=== PATIENT | male | born 1950 | race Caucasian/White ===

== ENCOUNTER 2017-11-21 03:59 | Emergency (ER) | payer MEDICARE, MEDICAID ==
[~2017-11-21] VITALS: Ht 172.7 cm; Wt 77.1 kg
[~2017-11-21 03:59] MED LIST: AMLO5TAB2 PO; ASPI81TA44 PO; BISA5TAB10 PO; ERGO400T7 PO; FENO134C PO; INSU100V11 SQ; LIRA0.6P2 SUBCUT; METF500T6 PO; METO50TA16 PO; OLME1TAB16 PO
[2017-11-21 04:03] VITALS: BP 138/79
== END 2017-11-21 05:42 | disposition home or self-care (01) ==
LOC: ER 04:03
DX: S93.692A Other sprain of left foot, initial encounter (principal); I10 Essential (primary) hypertension; E11.9 Type 2 diabetes mellitus without complications; E78.00 Pure hypercholesterolemia, unspecified; F17.200 Nicotine dependence, unspecified, uncomplicated; Z79.84 Long term (current) use of oral hypoglycemic drugs; Z85.528 Personal history of other malignant neoplasm of kidney; Z79.4 Long term (current) use of insulin; Z79.82 Long term (current) use of aspirin; X50.1XXA Overexertion from prolonged static or awkward postures, initial encounter; Y93.89 Activity, other specified; Y92.89 Other specified places as the place of occurrence of the external cause; Y99.8 Other external cause status
CPT/HCPCS: 73630; 99284; A4606; Z7610

== ENCOUNTER 2019-06-01 14:01 | Inpatient (IN) | payer MEDICARE, MEDICAID ==
[~2019-06-01] VITALS: Ht 162.6 cm; Wt 84.4 kg
[~2019-06-01 14:01] MED LIST changes: -AMLO5TAB2 PO; +AMLO5TAB9 PO; +METF-440 PO; -METF500T6 PO
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
[2019-06-01 14:52] LABS: BASOPHILS % (AUTO) 0.9 % (0.0-2.0); EOSINOPHILS % (AUTO) 2.1 % (0.0-6.0); HEMATOCRIT 35 % (39-51); HEMOGLOBIN 11.6 g/dL (13.5-17.5); LYMPHOCYTES # (AUTO) 0.6 /CMM (0.8-4.8); LYMPHOCYTES % (AUTO) 14.7 % (20.0-44.0); MEAN CORPUSCULAR HGB CONC 33 g/dl (31.0-36.0); MEAN CORPUSCULAR VOLUME 90 fL (80-96); MONOCYTES # (AUTO) 0.4 /CMM (0.1-1.30); MONOCYTES % (AUTO) 8.9 % (2.0-12.0); NEUTROPHILS # (AUTO) 3.1 /CMM (1.8-8.9); NEUTROPHILS % (AUTO) 73.4 % (43.0-81.0); PLATELET COUNT (AUTO) 166 /CMM (150-450); RED BLOOD CELL COUNT(AUTO) 3.94 MIL/uL (4.5-6.0); WHITE BLOOD COUNT (AUTO) 4.3 K/uL (4.3-11.0)
[2019-06-01 15:03] LABS: CALCIUM, SERUM 9.3 mg/dL (8.5-10.1); CARBON DIOXIDE 26 mmol/L (21-32); CHLORIDE 106 mmol/L (98-107); CREATININE 1.7 mg/dL (0.6-1.3); GLUCOSE 296 mg/dL (74-106); POTASSIUM 4.8 mmol/L (3.5-5.1); SODIUM SERUM 140 mmol/L (136-145); UREA NITROGEN, BLOOD 30 mg/dL (7-18)
[2019-06-01 15:17] LABS: ALANINE AMINOTRANSFERASE 41 U/L (12-78); ALBUMIN 3.1 g/dL (3.4-5.0); ALKALINE PHOSPHATASE 89 U/L (46-116); ASPARTATE AMINOTRANSFERASE 32 U/L (15-37); B-TYPE NATRIURETIC PEPTIDE 462 PG/ML (0-125); BILIRUBIN,DIRECT 0.2 mg/dL (0.0-0.2); BILIRUBIN,TOTAL 0.6 mg/dL (0.2-1.0); TOTAL PROTEIN, SERUM 6.5 g/dL (6.4-8.2)
[2019-06-01] MEDS ORDERED: LOSA50TA39 PO (15:26)
[2019-06-01] MEDS ORDERED: GLIP10TA21 PO (15:26)
[2019-06-01] MEDS ORDERED: METO25TA4 PO (15:26)
[2019-06-01] MEDS ORDERED: INSU100V7 SQ (15:26)
[2019-06-01] MEDS ORDERED: LINA145C PO (15:26)
[2019-06-01] MEDS ORDERED: ATOR40TA PO (15:26)
--- NOTE | 2019-06-01 15:29 | NUR ---
Social service consult requested by Dr. Chen for homelessness. Per chart review and MD notes, pt. is a 68-year-old Male, with a history of diabetes, hypertension, CAD s/p stent, presenting with swelling to the feet since 3 hours prior to arrival. SOFTWARE DEVELOPMENT COORDINATOR met with the pt bedside. Pt. is alert and oriented x 4. Pt. has a sad affect. Pt is pleasant during the assessment. Pt. has some belongings bedside. Pt. stated he was residing for 30 years in an apt located at [address] [place] [address] in [place] and was evicted by his landlord due to cheap rent. Pt. has been homeless since and has been living on the streets. Pt. receives SSI per month. Pt. has no emergency contact and the contact on the face sheet is no longer valid per pt. Pt. states he is feeling very depressed since he lost everything. Pt denies suicidal and homicidal ideations and visual/auditory hallucinations at this time. Pt denies access to weapons. Pt denies alcohol and drug use. Pt. would benefit from placement. [facility] requested Cholo to ordered pt. a lunch tray. SOFTWARE DEVELOPMENT COORDINATOR consulted with Dr. Chen and GRACE Lin regarding inpatient admission. No other social service needs are requested at this time. SOFTWARE DEVELOPMENT COORDINATOR is available, if needed.
--- NOTE | 2019-06-01 15:49 | NUR ---
CALLED NURSING SUP FOR TELE BED.
--- NOTE | 2019-06-01 16:30 | NUR ---
NURSING SUP GAVE TELE BED 327-1.
--- NOTE | 2019-06-01 16:40 | NUR ---
report given to veronica ríos for paige; pt will be transported to 3rd floor
[2019-06-01] MEDS ORDERED: MAG HYDROX/AL HYDROX/SIMETH 30 ML UDC PO PRN (17:00)
[2019-06-01] MEDS ORDERED: ONDANSETRON HCL/PF 4 MG/2 ML VIAL IVP PRN (17:00)
[2019-06-01] MEDS ORDERED: ZOLPIDEM TARTRATE 5 MG TABLET PO PRN (17:00)
[2019-06-01] MEDS ORDERED: Z GUARD REMEDY 2 OZ OINT TP PRN (17:00)
[2019-06-01] MEDS ORDERED: ACETAMINOPHEN 325 MG TABLET PO PRN (17:00)
[2019-06-01] MEDS ORDERED: MAGNESIUM HYDROXIDE 30 ML UDC PO PRN (17:00)
[2019-06-01] MEDS ORDERED: HYDROCODONE/APAP 5/325MG 1 EACH TABLET PO PRN (17:00)
--- NOTE | 2019-06-01 17:02 | NUR ---
pt transported to 3rd floor
--- NOTE | 2019-06-01 17:15 | NUR ---
MS/CHURN OPERATOR MARGARINE NOTE Patient admitted from ER, vital signs BP 116/57, SD 57, RR 18, T 97.2, O2 98% on RA pain level 0/10. Breathing is even and unlabored, patient is cooperative and pleasant. IV line in LAC is clean and intact. Skin assessed, photos taken and placed in chart. Patient is ambulatory. Bed is in lowest position, side rails x2 in upright position, call light is within reach and patient is aware of how to call for assistance when needed. Will continue with plan of care and admission process.
--- NOTE | 2019-06-01 18:30 | NUR ---
MS/RN CLOSING NOTE Patient is resting in bed, A/O x4, showing no signs of acute distress or SOB, saturating 98% on RA. No complaints of pain at this time. Iv line is clean and intact. Bed is in lowest position, side rails x2 in upright position, call light is within reach and patient is aware of how to call for assistance when needed. Will endorse to program arranger.
--- NOTE | 2019-06-01 19:35 | NUR ---
MS/RN NOTES RECEIVED PT. LYING IN BED. PT. IS AWAKE, ALERT AND ORIENTED X3. BREATHING EVEN AND UNLABORED ON ROOM AIR. NO SOB, RESPIRATORY DISTRESS OR COMPLAINTS OF PAIN NOTED AT THIS TIME. PT. IV ACCESS PRESENT, CLEAN, DRY AND INTACT. PT. WITH BILATERAL LOWER EXTREMITY NON-PITTING EDEMA. ELEVATED PT. BILATERAL LEGS AND FEET ON PILLOWS. BED LOCKED AND IN LOWEST POSITION, SIDE RAILS UP X2, CALL LIGHT WITHIN REACH, WILL CONTINUE TO MONITOR.
[2019-06-01 20:00] VITALS: BP 130/70
--- NOTE | 2019-06-01 20:31 | NUR ---
belongings list done and signed
--- NOTE | 2019-06-01 23:50 | NUR ---
MS/RN NOTES NOTIFIED EPIC RESIDENTIAL SPECIALIST NADEEN GLORIA PT. IS DIABETIC AND HAS NO ACCUCHECKS SCHEDULED. PER NADEEN GLORIA NEW ORDER: ACCUCHECKS ACHS WITH MILD SLIDING SCALE. WILL CARRY OUT ORDERS. WILL CONTINUE TO MONITOR.
[2019-06-02] MEDS ORDERED: DEXTROSE 50%-WATER 50 ML DISP.SYRIN IV PRN
[2019-06-02] MEDS: BLOOD SUGAR DIAGNOSTIC 1 EACH STRIP IN SCH ×4 (06:34→23:25)
--- NOTE | 2019-06-02 06:54 | NUR ---
MS/RN NOTES PT. IS LYING IN BED RESTING. BREATHING EVEN AND UNLABORED ON ROOM AIR. NO SOB, RESPIRATORY DISTRESS OR COMPLAINTS OF PAIN NOTED AT THIS TIME AND THROUGHOUT SHIFT. PT. WITH LEFT AC 18 GAUGE IV SALINE LOCK PRESENT, CLEAN, DRY AND INTACT. ALL PT. NEEDS MET. BED LOCKED AND IN LOWEST POSITION, SIDE RAILS UP X2, CALL LIGHT WITHIN REACH, WILL ENDORSE TO DAYSHIFT NURSE FOR CONTINUITY OF CARE.
--- NOTE | 2019-06-02 08:03 | NUR ---
MS/RN OPENING NOTES RECEIVED PATIENT LYING IN BED COMFORTABLY. BREATHING EVEN AND UNLABORED ON ROOM AIR. NO SOB, RESPIRATORY DISTRESS OR COMPLAINTS OF PAIN NOTED AT THIS TIME. PATIENT WITH LEFT AC 18 GAUGE IV SALINE LOCK PRESENT, CLEAN, DRY AND INTACT. BED LOCKED AND IN LOWEST POSITION, SIDE RAILS UP X2, CALL LIGHT WITHIN REACH, WILL CONTINUE TO MONITOR.
[2019-06-02 08:37] LABS: BASOPHILS % (AUTO) 0.6 % (0.0-2.0); EOSINOPHILS % (AUTO) 2.3 % (0.0-6.0); HEMATOCRIT 41 % (39-51); HEMOGLOBIN 13.6 g/dL (13.5-17.5); LYMPHOCYTES # (AUTO) 0.9 /CMM (0.8-4.8); LYMPHOCYTES % (AUTO) 18.9 % (20.0-44.0); MEAN CORPUSCULAR HGB CONC 33 g/dl (31.0-36.0); MEAN CORPUSCULAR VOLUME 89 fL (80-96); MONOCYTES # (AUTO) 0.4 /CMM (0.1-1.30); MONOCYTES % (AUTO) 8.4 % (2.0-12.0); NEUTROPHILS # (AUTO) 3.5 /CMM (1.8-8.9); NEUTROPHILS % (AUTO) 69.8 % (43.0-81.0); PLATELET COUNT (AUTO) 211 /CMM (150-450); RED BLOOD CELL COUNT(AUTO) 4.61 MIL/uL (4.5-6.0)
[2019-06-02] MEDS ORDERED: FUROSEMIDE 20 MG/2 ML VIAL IV SCH (09:00)
[2019-06-02] MEDS: ATORVASTATIN 40 MG TABLET PO SCH (09:13)
[2019-06-02] MEDS: METOPROLOL SUCCINATE 25 MG TAB.SR.24H PO SCH (09:14)
[2019-06-02] MEDS: LOSARTAN POTASSIUM 50 MG TABLET PO SCH (09:14)
[2019-06-02] MEDS: AMLODIPINE BESYLATE 5 MG TABLET PO SCH (09:15)
[2019-06-02] MEDS: ASPIRIN EC 81 MG TABLET.DR PO SCH (09:15)
[2019-06-02 09:45] LABS: CREATININE 1.5 mg/dL (0.6-1.3); MAGNESIUM 1.7 mg/dL (1.8-2.4); PHOSPHORUS 4.1 mg/dL (2.5-4.9); POTASSIUM 4.6 mmol/L (3.5-5.1)
[2019-06-02] MEDS: glipiZIDE XL 10 MG TAB.OSM.24 PO SCH (09:51)
[2019-06-02] MEDS: INSULIN GLARGINE, 100 UNIT/ML CARTRIDGE SQ SCH (10:25)
[2019-06-02] MEDS: Magnesium 1GM/D5W 100ML PREMIX 100 ML IV SCH ×2 (12:16→12:30)
[2019-06-02] MEDS: INSULIN REGULAR, HUMAN 100 UNIT/ML 3 ML VIAL SQ PRN ×3 (13:19→23:25)
[2019-06-02 16:00] VITALS: BP 108/37
--- NOTE | 2019-06-02 18:49 | NUR ---
MS/RN CLOSING NOTES PATIENT IS ALERT AND ORIENTED X4. DENIES PAIN AT THIS TIME. NO RESPIRATORY DISTRESS NOTED. SEEN AND EXAMINED BY MD WITH ORDERS AND CARRIED OUT. KEPT PATIENT CLEAN AND DRY THE WHOLE TIME. PATIENT BED IS IN LOWEST POSITION, SIDE RAILS UP X2. CALL LIGHT WITH IN REACH. ALL DUE MEDS ARE GIVEN. WILL ENDORSED TO AUTOMATED PROCESS OPERATOR FOR CONTINUITY OF CARE.
--- NOTE | 2019-06-02 19:15 | NUR ---
MS/RN OPENING NOTES BEDSIDE REPORT RECIEVED FROM LD PARRISH. PATIENT IS ALERT AND ORIENTED X4. DENIES PAIN AT THIS TIME. NO RESPIRATORY DISTRESS NOTED. PATIENT BED IS IN LOWEST POSITION, SIDE RAILS UP X2. CALL LIGHT WITH IN REACH. BED DOWN LOCKED SRX2 WILL CONT TO MONITOR.
[2019-06-02 20:00] VITALS: BP 127/61
--- NOTE | 2019-06-03 06:00 | NUR ---
MS/RN CLOSING NOTES PT SEEN PATIENT IS ALERT AND ORIENTED X4. AM BLOOD SUGAR WAS 118. NO INSULIN GIVEN. DENIES PAIN AT THIS TIME. NO RESPIRATORY DISTRESS NOTED. PATIENT BED IS IN LOWEST POSITION, SIDE RAILS UP X2. CALL LIGHT WITH IN REACH. ALL DUE MEDS ARE GIVEN. WILL CONT TO MONITOR AND ENDORSE CARE TO DAY SHIFT WHEN THEY COME LATER.
[2019-06-03] MEDS: BLOOD SUGAR DIAGNOSTIC 1 EACH STRIP IN SCH ×4 (06:57→22:32)
--- NOTE | 2019-06-03 07:53 | NUR ---
MS/RN OPENING NOTES RECEIVED PATIENT LYING IN BED COMFORTABLY. PATIENT IS ALERT AND ORIENTED X4. COMPLAINED OF PAIN AT THE RANGE OF 5 IN THE LEG. NO RESPIRATORY DISTRESS NOTED. PATIENT BED IS IN LOWEST POSITION, SIDE RAILS UP X2. CALL LIGHT WITH IN REACH. WILL CONTINUE TO MONITOR..
[2019-06-03 08:00] VITALS: BP 99/64
[2019-06-03 08:08] LABS: BASOPHILS % (AUTO) 0.5 % (0.0-2.0); EOSINOPHILS % (AUTO) 1.4 % (0.0-6.0); HEMATOCRIT 39 % (39-51); HEMOGLOBIN 12.9 g/dL (13.5-17.5); LYMPHOCYTES # (AUTO) 0.8 /CMM (0.8-4.8); LYMPHOCYTES % (AUTO) 17.7 % (20.0-44.0); MEAN CORPUSCULAR HGB CONC 33 g/dl (31.0-36.0); MEAN CORPUSCULAR VOLUME 88 fL (80-96); MONOCYTES # (AUTO) 0.4 /CMM (0.1-1.30); NEUTROPHILS # (AUTO) 3.1 /CMM (1.8-8.9); NEUTROPHILS % (AUTO) 71.4 % (43.0-81.0); PLATELET COUNT (AUTO) 186 /CMM (150-450); RED BLOOD CELL COUNT(AUTO) 4.46 MIL/uL (4.5-6.0); WHITE BLOOD COUNT (AUTO) 4.3 K/uL (4.3-11.0)
[2019-06-03 08:21] LABS: CALCIUM, SERUM 9.5 mg/dL (8.5-10.1); CREATININE 1.5 mg/dL (0.6-1.3); MAGNESIUM 1.7 mg/dL (1.8-2.4)
[2019-06-03] MEDS: HYDROCHLOROTHIAZIDE 25 MG TABLET PO SCH (09:00)
[2019-06-03] MEDS: AMLODIPINE BESYLATE 5 MG TABLET PO SCH (09:00)
[2019-06-03] MEDS: glipiZIDE XL 10 MG TAB.OSM.24 PO SCH (09:03)
[2019-06-03] MEDS: INSULIN GLARGINE, 100 UNIT/ML CARTRIDGE SQ SCH (09:05)
[2019-06-03] MEDS: LOSARTAN POTASSIUM 50 MG TABLET PO SCH (09:06)
[2019-06-03] MEDS: ASPIRIN EC 81 MG TABLET.DR PO SCH (09:06)
[2019-06-03] MEDS: METOPROLOL SUCCINATE 25 MG TAB.SR.24H PO SCH (09:07)
[2019-06-03] MEDS: ATORVASTATIN 40 MG TABLET PO SCH (09:14)
--- NOTE | 2019-06-03 09:15 | NUR ---
MS/RN NOTES AMLODIPINE 5MG AND COZAAR 5OMG PO AM DOSE ON HOLD FOR BLOOD PRESSURE 99/64 PULSE 63.
[2019-06-03] MEDS: Magnesium 1GM/D5W 100ML PREMIX 100 ML IV SCH ×2 (11:28→12:31)
[2019-06-03] MEDS: INSULIN REGULAR, HUMAN 100 UNIT/ML 3 ML VIAL SQ PRN ×3 (12:35→22:37)
[2019-06-03 16:00] VITALS: BP 111/65
--- NOTE | 2019-06-03 17:39 | NUR ---
MS/RN NOTES BS 141MG/DL 2 UNITS REGULAR INSULIN GIVEN
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
--- NOTE | 2019-06-03 19:00 | NUR ---
FRANCOIS monroy opening notes Received Pt from morning nurse. Pt is alert and orientedX4. Pt is sitting in bed comfortably. Respiration is normal. no SOB. No S/S of distress noted. IV sites LAC# 18 is clean, intact, patent and SL. Safety precautions is maintained. Bed at low position, brakes locked, side rails upX3 and call light is within reach. Will endorse to morning nurse for JOHN. Addendum: 06/04/19 at 0814 by RAYMOND ALBA RN Will continue to monitor
[2019-06-03 20:00] VITALS: BP 124/75
--- NOTE | 2019-06-04 07:00 | NUR ---
RN medsurg closing notes Pt is resting in bed comfortably. Pt is alert and orientedX4. Respiration is normal. no SOB. No S/S of distress noted. IV sites at LAC# 18 is clean, intact, patent and SL. VS is stable. Routine meds were given as ordered. Kept Pt clean, dry and comfortable. All needs met and attended. Safety precautions is maintained. Bed at low position, brakes locked, side rails upX3 and call light is within reach. Will endorse to morning nurse for JOHN.
[2019-06-04] MEDS: BLOOD SUGAR DIAGNOSTIC 1 EACH STRIP IN SCH ×3 (07:03→17:16)
[2019-06-04] MEDS: INSULIN REGULAR, HUMAN 100 UNIT/ML 3 ML VIAL SQ PRN ×3 (07:05→17:17)
--- NOTE | 2019-06-04 07:35 | NUR ---
MS/RN NOTE THE PATIENT IS RECEIVED IN BED. PATIENT IS ALERT AND ORIENTED X4. IN ROOM AIR AND DENIES SOB. RESPIRATION REGULAR AND UNLABORED. DENIES PAIN. THE PATIENT IN NO APPARENT DISTRESS. ALC G 18 PATENT AND SALINE LOCKED. BED LOW AND LOCKED. SIDE RAILS UP X3. CALL LIGHT WITHIN REACH. WILL CONTINUE TO MONITOR.
[2019-06-04 08:00] VITALS: BP 115/65
[2019-06-04 08:26] LABS: CALCIUM, SERUM 9.2 mg/dL (8.5-10.1); CREATININE 1.5 mg/dL (0.6-1.3); MAGNESIUM 1.6 mg/dL (1.8-2.4); POTASSIUM 4.1 mmol/L (3.5-5.1)
[2019-06-04] MEDS: ASPIRIN EC 81 MG TABLET.DR PO SCH (09:47)
[2019-06-04] MEDS: ATORVASTATIN 40 MG TABLET PO SCH (09:47)
[2019-06-04] MEDS: Linaclotide (Linzess) 145 MCG PO SCH ×2 (09:47→09:56)
[2019-06-04] MEDS: AMLODIPINE BESYLATE 5 MG TABLET PO SCH (09:48)
[2019-06-04] MEDS: METOPROLOL SUCCINATE 25 MG TAB.SR.24H PO SCH (09:48)
[2019-06-04] MEDS: HYDROCHLOROTHIAZIDE 25 MG TABLET PO SCH (09:49)
[2019-06-04] MEDS: LOSARTAN POTASSIUM 50 MG TABLET PO SCH (09:49)
[2019-06-04 09:50] LABS: BASOPHILS % (AUTO) 0.3 % (0.0-2.0); EOSINOPHILS % (AUTO) 1.6 % (0.0-6.0); HEMATOCRIT 39 % (39-51); HEMOGLOBIN 12.7 g/dL (13.5-17.5); LYMPHOCYTES # (AUTO) 0.9 /CMM (0.8-4.8); LYMPHOCYTES % (AUTO) 16.3 % (20.0-44.0); MEAN CORPUSCULAR HGB CONC 33 g/dl (31.0-36.0); MEAN CORPUSCULAR VOLUME 88 fL (80-96); MONOCYTES # (AUTO) 0.5 /CMM (0.1-1.30); MONOCYTES % (AUTO) 8.6 % (2.0-12.0); NEUTROPHILS # (AUTO) 3.9 /CMM (1.8-8.9); NEUTROPHILS % (AUTO) 73.2 % (43.0-81.0); PLATELET COUNT (AUTO) 208 /CMM (150-450); RED BLOOD CELL COUNT(AUTO) 4.45 MIL/uL (4.5-6.0); WHITE BLOOD COUNT (AUTO) 5.3 K/uL (4.3-11.0)
[2019-06-04] MEDS: glipiZIDE XL 10 MG TAB.OSM.24 PO SCH (09:50)
[2019-06-04] MEDS: INSULIN GLARGINE, 100 UNIT/ML CARTRIDGE SQ SCH (10:09)
[2019-06-04] MEDS: Magnesium 1GM/D5W 100ML PREMIX 100 ML IV SCH ×2 (10:22→11:30)
[2019-06-04 16:00] VITALS: BP 100/69
[2019-06-04] MEDS ORDERED: HYDR25TA4 PO (17:58)
--- NOTE | 2019-06-04 18:15 | NUR ---
MS/RN NOTE THE PATIENT IS ALERT AND ORIENTED X4. DENIES PAIN. IN ROOM AIR AND SATURATION IS AT 97%. DENIES SOB. RESPIRATION REGULAR AND UNLABORED. LAC G 18 PATENT AND SALINE LOCKED. BED LOW AND LOCKED. SIDE RAILS UP X3. CALL LIGHT WITHIN REACH. WILL ENDORSE TO ASSOCIATE. REPORT GIVEN TO MONICA TO NURSE BYNUM.
--- NOTE | 2019-06-04 19:00 | NUR ---
RN MS OPENING NOTES RECEIVED PATIENT IN BED AWAKE ALERT AND ORIENTED X4, RESPIRATIONS EVEN AND UNLABORED WITH EQUAL RISE AND FALL OF CHEST, DENIES ANY PAIN OR DISCOMFORT AT THIS TIME. IV SITE TO LEFT AC #18 G INTACT AND PATENT, NO REDNESS, NO INFILTRATION PRESENT , PATIENT IS SCHEDULED FOR DISCHARGE . AL, NEEDS ATTENDED REMAINS COMFORTABLE AT THIS TIME, WILL CONTINUE TO MONITOR.
[2019-06-04 20:00] VITALS: BP 145/85
--- NOTE | 2019-06-04 20:22 | NUR ---
RN MS DISCHARGE NOTES PATIENT FOR DISCHARGE PICKED UP BY [facility] ACCOMPANIED BY 2 EMT, AWAKE ALERT AND ORIENTED X4, RESPIRATIONS EVEN AND UNLABORED WITH EQUAL RISE AND FALL OF CHEST, DENIES ANY PAIN OR DISCOMFORT AT THIS TIME. IV SITE TO LEFT AC #18 G REMOVED , NO BLEEDING NO REDNESS, NO INFILTRATION PRESENT ,DISCHARGE REVIEWED WITH PATIENT, BELONGINGS REVIEWED WITH PATIENT AND PATIENT SIGNED DISCHARGE, ALL BELONGINGS WITH PATIENT DISCHARGE PAPER WORK GIVEN TO EMT, LEFT IN STABLE CONDITION, ALL NEEDS ATTENDED WERE ATTENDED, PERSONAL MEDICATIONS RETURNED TO PATIENT.VS JOSEL.
[2019-06-05] MEDS ORDERED: Linaclotide (Linzess) 145 MCG PO SCH (09:00)
== END 2019-06-04 20:30 | DRG 299 ==
LOC: ER 14:06 → TELE 16:42 → MED 06-02 12:33 → CSC3 06-03 00:36 → TELE 06-03 00:38 → MED 06-03 00:44
PROVIDERS: ADMIT Family Medicine; ATTEND Family Medicine
DX: E11.51 Type 2 diabetes mellitus with diabetic peripheral angiopathy without gangrene (principal); I50.33 Acute on chronic diastolic (congestive) heart failure; N17.0 Acute kidney failure with tubular necrosis; I13.0 Hypertensive heart and chronic kidney disease with heart failure and stage 1 through stage 4 chronic kidney disease, or unspecified chronic kidney disease; Q61.3 Polycystic kidney, unspecified; D63.8 Anemia in other chronic diseases classified elsewhere; N18.9 Chronic kidney disease, unspecified; I25.10 Atherosclerotic heart disease of native coronary artery without angina pectoris; I25.2 Old myocardial infarction; E11.22 Type 2 diabetes mellitus with diabetic chronic kidney disease; E11.65 Type 2 diabetes mellitus with hyperglycemia; E78.5 Hyperlipidemia, unspecified; Z95.5 Presence of coronary angioplasty implant and graft; Z85.528 Personal history of other malignant neoplasm of kidney; Z90.5 Acquired absence of kidney; Z87.891 Personal history of nicotine dependence; Z59.0 Homelessness; M25.569 Pain in unspecified knee; F03.90 Unspecified dementia, unspecified severity, without behavioral disturbance, psychotic disturbance, mood disturbance, and anxiety; J44.9 Chronic obstructive pulmonary disease, unspecified; K21.9 Gastro-esophageal reflux disease without esophagitis; K59.00 Constipation, unspecified; M19.90 Unspecified osteoarthritis, unspecified site; F41.9 Anxiety disorder, unspecified; F41.0 Panic disorder [episodic paroxysmal anxiety]; G47.9 Sleep disorder, unspecified; F40.9 Phobic anxiety disorder, unspecified; E83.42 Hypomagnesemia
CPT/HCPCS: 36415; 71045-TC; 76770-TC; 80048-TC; 80061-TC; 80076-TC; 82962-TC; 83735-TC; 83880; 84100-TC; 84484-TC; 84550-TC; 85025-TC; 87081-TC; 93307-TC; 93970-TC; G0378; J1815; J1940; J3475; J7050

== ENCOUNTER 2019-06-10 23:05 | Emergency (ER) | payer MEDICARE, MEDICAID ==
[~2019-06-10] VITALS: Ht 172.7 cm; Wt 77.1 kg
[~2019-06-10 23:05] MED LIST changes: +ATOR40TA PO; -BISA5TAB10 PO; -ERGO400T7 PO; -FENO134C PO; +GLIP10TA21 PO; +HYDR25TA4 PO; -INSU100V11 SQ; +INSU100V7 SQ; +LINA145C PO; -LIRA0.6P2 SUBCUT; +LOSA50TA39 PO; -METF-440 PO; +METO25TA4 PO; -METO50TA16 PO; -OLME1TAB16 PO
--- NOTE | 2019-06-10 23:56 | NUR ---
PT CAME TO ER BED 10 C/O COUGHING FOR PAST 4 DAYS. PT STATES THAT HE HAD THIS SAME COUGH LAST MONTH. AAOX4. NO SOB. BREATHING EVENLY AND UNLABORED ON ROOM AIR. CONNECTED TO MONITOR.
--- NOTE | 2019-06-11 00:16 | NUR ---
CARBIDE POWDER PROCESSOR AT BEDSIDE FOR BLOOD DRAW
--- NOTE | 2019-06-11 00:18 | NUR ---
XRAY AT BEDSIDE
--- NOTE | 2019-06-11 00:18 | NUR ---
FLU SWAB SAMPLE SENT TO LAB
[2019-06-11 00:22] LABS: BASOPHILS % (AUTO) 0.4 % (0.0-2.0); EOSINOPHILS % (AUTO) 2.9 % (0.0-6.0); HEMATOCRIT 36 % (39-51); HEMOGLOBIN 11.8 g/dL (13.5-17.5); LYMPHOCYTES # (AUTO) 0.9 /CMM (0.8-4.8); LYMPHOCYTES % (AUTO) 16.3 % (20.0-44.0); MEAN CORPUSCULAR HGB CONC 33 g/dl (31.0-36.0); MEAN CORPUSCULAR VOLUME 87 fL (80-96); MONOCYTES # (AUTO) 0.5 /CMM (0.1-1.30); MONOCYTES % (AUTO) 9.4 % (2.0-12.0); NEUTROPHILS # (AUTO) 3.8 /CMM (1.8-8.9); PLATELET COUNT (AUTO) 184 /CMM (150-450); RED BLOOD CELL COUNT(AUTO) 4.08 MIL/uL (4.5-6.0); WHITE BLOOD COUNT (AUTO) 5.4 K/uL (4.3-11.0)
[2019-06-11 00:28] LABS: CALCIUM, SERUM 8.8 mg/dL (8.5-10.1); CARBON DIOXIDE 27 mmol/L (21-32); CHLORIDE 99 mmol/L (98-107); CREATININE 2.1 mg/dL (0.6-1.3); GLUCOSE 172 mg/dL (74-106); POTASSIUM 3.8 mmol/L (3.5-5.1); SODIUM SERUM 137 mmol/L (136-145); UREA NITROGEN, BLOOD 42 mg/dL (7-18)
[2019-06-11] MEDS ORDERED: IPRATROPIUM NEB FS 0.5 MG/2.5 ML AMPUL.NEB NEB ONE (03:30)
[2019-06-11] MEDS ORDERED: ALBUTEROL FS 2.5 MG/3 ML VIAL.NEB NEB ONE (03:30)
--- NOTE | 2019-06-11 03:58 | NUR ---
RT CALLED FOR MEDICATION ADMINISTRATION
[2019-06-11] MEDS ORDERED: IPRATROPIUM NEB FS 0.5 MG/2.5 ML AMPUL.NEB ONE (04:01)
[2019-06-11] MEDS ORDERED: ALBUTEROL FS 2.5 MG/3 ML VIAL.NEB ONE (04:01)
[2019-06-11] MEDS ORDERED: IV NS 0.9% 1,000 ML BAG IV ONE (05:00)
--- NOTE | 2019-06-11 06:19 | NUR ---
IV removed. Catheter intact and site benign. Pressure and 4x4 applied to site. No bleeding noted. Patient discharged to home in stable condition. Written and verbal after care instructions given. Patient verbalizes understanding of instruction.
--- NOTE | 2019-06-11 06:22 | NUR ---
[facility] CALLED . ETA [phone]
--- NOTE | 2019-06-11 07:48 | NUR ---
REPORT GIVEN TO VIK PARRISH FOR JOHN.
[2019-06-11 09:21] VITALS: BP 118/70
--- NOTE | 2019-06-11 09:21 | NUR ---
AMBULANCE AT BEDSIDE TO TAKE PT BACK TO [facility]
--- NOTE | 2019-06-11 09:21 | NUR ---
Patient discharged to home in stable condition. Written and verbal after care instructions given. Patient verbalizes understanding of instruction.
== END 2019-06-11 09:22 ==
LOC: ER 23:10
DX: R79.0 Abnormal level of blood mineral (principal); R05 Cough; I25.2 Old myocardial infarction; K21.9 Gastro-esophageal reflux disease without esophagitis; I10 Essential (primary) hypertension; E11.9 Type 2 diabetes mellitus without complications; E78.00 Pure hypercholesterolemia, unspecified; F17.200 Nicotine dependence, unspecified, uncomplicated; Z98.890 Other specified postprocedural states; Z60.2 Problems related to living alone; Z79.899 Other long term (current) drug therapy; Z79.4 Long term (current) use of insulin; Z79.82 Long term (current) use of aspirin
CPT/HCPCS: 36415; 71045-TC; 80048-TC; 83605-TC; 84484-TC; 85025-TC

== ENCOUNTER 2020-02-28 18:58 | Emergency (ER) | payer MEDICARE, MEDICAID ==
[~2020-02-28] VITALS: Ht 162.6 cm; Wt 81.6 kg
[2020-02-28 19:04] VITALS: BP 100/55
--- NOTE | 2020-02-28 19:15 | NUR ---
PT AAOX4. BIBRA C/O BILATERAL FOOT SWELLING X3 MONTHS. PT STATING IT HAS BEEN GRADUALLY BECOME WORSE. PT PLACED IN GOWN, ON MONITOR, AND PULSE OX. VSS. NO ACUTE DISTRESS NOTED. AWAITING MD FOR EVAL AND ORDERS. PER RA, HAS HX OF DIABETES AND CHF. WILL CONTINUE TO MONITOR.
== END 2020-02-28 21:00 | disposition home or self-care (01) ==
LOC: ER 19:02
DX: R60.0 Localized edema (principal); I10 Essential (primary) hypertension; I25.2 Old myocardial infarction; K21.9 Gastro-esophageal reflux disease without esophagitis; E11.9 Type 2 diabetes mellitus without complications; E78.00 Pure hypercholesterolemia, unspecified; Z98.890 Other specified postprocedural states; Z60.2 Problems related to living alone; Z79.4 Long term (current) use of insulin; Z79.82 Long term (current) use of aspirin; Z79.899 Other long term (current) drug therapy
CPT/HCPCS: 93970-TC

== ENCOUNTER 2020-03-08 23:02 | Inpatient (IN) | payer MEDICARE, OTHER ==
[~2020-03-08] VITALS: Ht 170.2 cm; Wt 79.8 kg
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
--- NOTE | 2020-03-08 23:35 | NUR ---
PT BROUGHT TO CT
[2020-03-09] VITALS (15 sets, daily range): BP systolic 103–140; BP diastolic 51–78
--- NOTE | 2020-03-09 00:15 | NUR ---
BG 48, MD AWARE. PT PROVIDED WITH 2 ORANGE JUICES.
--- NOTE | 2020-03-09 00:16 | NUR ---
DR. HENDERSON SPEAKING TO DR. MCDONALD REGARDING PLAN OF CARE.
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
--- NOTE | 2020-03-09 00:33 | NUR ---
ADEOLAID SWABBED, SENT TO LAB.
[2020-03-09 00:34] LABS: BASOPHILS % (AUTO) 0.6 % (0.0-2.0); EOSINOPHILS % (AUTO) 2.1 % (0.0-6.0); HEMATOCRIT 35 % (39-51); HEMOGLOBIN 11.2 g/dL (13.5-17.5); LYMPHOCYTES # (AUTO) 0.9 /CMM (0.8-4.8); LYMPHOCYTES % (AUTO) 13.5 % (20.0-44.0); MEAN CORPUSCULAR HGB CONC 32 g/dl (31.0-36.0); MEAN CORPUSCULAR VOLUME 91 fL (80-96); MONOCYTES # (AUTO) 0.4 /CMM (0.1-1.30); MONOCYTES % (AUTO) 6.1 % (2.0-12.0); NEUTROPHILS # (AUTO) 4.9 /CMM (1.8-8.9); NEUTROPHILS % (AUTO) 77.7 % (43.0-81.0); PLATELET COUNT (AUTO) 164 /CMM (150-450); RED BLOOD CELL COUNT(AUTO) 3.83 MIL/uL (4.5-6.0); WHITE BLOOD COUNT (AUTO) 6.4 K/uL (4.3-11.0)
--- NOTE | 2020-03-09 00:44 | NUR ---
PAGED [facility].
--- NOTE | 2020-03-09 00:46 | NUR ---
Nancy mckee in [facility] - 03/09/[address] HOBBS SPEAKING TO DR. HENDERSON REGARDING PLAN OF CARE.
[2020-03-09 00:49] LABS: CALCIUM, SERUM 8.9 mg/dL (8.5-10.1); CARBON DIOXIDE 23 mmol/L (21-32); CHLORIDE 107 mmol/L (98-107); CREATININE 1.6 mg/dL (0.6-1.3); POTASSIUM 4.2 mmol/L (3.5-5.1); SODIUM SERUM 142 mmol/L (136-145); UREA NITROGEN, BLOOD 37 mg/dL (7-18)
[2020-03-09 00:52] LABS: GLUCOSE 48 mg/dL (74-106)
--- NOTE | 2020-03-09 00:56 | NUR ---
RN SUP FOR ICU BED.
--- NOTE | 2020-03-09 01:22 | NUR ---
DR. HOBBS SPOKE TO DR. HENDERSON REGARDING PLAN OF CARE.
--- NOTE | 2020-03-09 01:41 | NUR ---
BG 86, MD AWARE.
--- NOTE | 2020-03-09 01:52 | NUR ---
PT ASSIGNED TO 257
--- NOTE | 2020-03-09 01:52 | NUR ---
MED LIST UPDATED.
--- NOTE | 2020-03-09 01:55 | NUR ---
CALLED TO GIVE REPORT, NURSE NOT AVAILABLE.
--- NOTE | 2020-03-09 02:30 | NUR ---
REPORT GIVEN TO ED RN FOR JOHN
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
--- NOTE | 2020-03-09 03:13 | NUR ---
PT TRANSFERED PER ACLS PROTOCOL
[2020-03-09] MEDS ORDERED: HYDROCODONE/APAP 5/325MG TABLET PO PRN (03:30)
[2020-03-09] MEDS ORDERED: MAGNESIUM HYDROXIDE 30 ML UDC PO PRN (03:30)
[2020-03-09] MEDS ORDERED: ENALAPRILAT DIHYD. (2.5MG/ML) 1.25 MG/ML VIAL IV PRN (03:30)
[2020-03-09] MEDS ORDERED: ACETAMINOPHEN 325 MG TABLET PO PRN (03:30)
[2020-03-09] MEDS ORDERED: DEXTROSE 50%-WATER 50 ML DISP.SYRIN IV PRN (03:30)
[2020-03-09] MEDS ORDERED: ONDANSETRON HCL/PF 4 MG/2 ML VIAL IVP PRN (03:30)
[2020-03-09] MEDS ORDERED: MORPHINE SULFATE INJ 2 MG/ML DISP.SYRIN IV PRN (03:30)
--- NOTE | 2020-03-09 03:30 | NUR ---
ICU NOTES BLOOD SUGAR OF 33MG/DL AT 330AM DEXT 50% GIVEN ORDERED.
[2020-03-09] MEDS: BLOOD SUGAR DIAGNOSTIC 1 EACH STRIP IN SCH ×5 (04:03→22:24)
--- NOTE | 2020-03-09 04:30 | NUR ---
ICU NOTES SEEN AND EXAMINED BY DR HOBBS AT BEDSIDE WITH NEW ORDER NOTED AND CARRIED OUT , D5 NS AT 70CC/HR INFUSING WELL .
[2020-03-09 04:32] LABS: BASOPHILS % (AUTO) 0.7 % (0.0-2.0); EOSINOPHILS % (AUTO) 2.1 % (0.0-6.0); HEMATOCRIT 31 % (39-51); HEMOGLOBIN 10.4 g/dL (13.5-17.5); LYMPHOCYTES # (AUTO) 0.8 /CMM (0.8-4.8); LYMPHOCYTES % (AUTO) 15.2 % (20.0-44.0); MEAN CORPUSCULAR HGB CONC 33 g/dl (31.0-36.0); MEAN CORPUSCULAR VOLUME 90 fL (80-96); MONOCYTES # (AUTO) 0.5 /CMM (0.1-1.30); MONOCYTES % (AUTO) 9.1 % (2.0-12.0); NEUTROPHILS # (AUTO) 3.7 /CMM (1.8-8.9); NEUTROPHILS % (AUTO) 72.9 % (43.0-81.0); PLATELET COUNT (AUTO) 148 /CMM (150-450); RED BLOOD CELL COUNT(AUTO) 3.47 MIL/uL (4.5-6.0); WHITE BLOOD COUNT (AUTO) 5.1 K/uL (4.3-11.0)
[2020-03-09] MEDS: IV D5/ 0.9% NACL 1,000 ML IV PRN ×2 (04:37→20:37)
--- NOTE | 2020-03-09 04:45 | NUR ---
SCALP TREATMENT SPECIALIST NOTES BLOOD SUGAR CHECK AT 445AM ,BLOOD SUGAR OF 151 MG /DL MD MADE AWARE WILL CONTINUE TO MONITOR.
[2020-03-09 04:59] LABS: CHOLESTEROL 96 mg/dL (<200); HDL CHOLESTEROL 42 mg/dL (40-60); LDL 45 mg/dL (0-99); TRIGLYCERIDES 49 mg/dL (30-150)
[2020-03-09 05:25] LABS: ALANINE AMINOTRANSFERASE 26 U/L (12-78); ALBUMIN 3.3 g/dL (3.4-5.0); ALKALINE PHOSPHATASE 98 U/L (46-116); ASPARTATE AMINOTRANSFERASE 20 U/L (15-37); BILIRUBIN,TOTAL 0.5 mg/dL (0.2-1.0); CALCIUM, SERUM 8.7 mg/dL (8.5-10.1); CARBON DIOXIDE 21 mmol/L (21-32); CHLORIDE 108 mmol/L (98-107); CREATININE 1.5 mg/dL (0.6-1.3); MAGNESIUM 1.8 mg/dL (1.8-2.4); PHOSPHORUS 3.3 mg/dL (2.5-4.9); POTASSIUM 3.9 mmol/L (3.5-5.1); SODIUM SERUM 141 mmol/L (136-145); TOTAL PROTEIN, SERUM 6.9 g/dL (6.4-8.2); UREA NITROGEN, BLOOD 34 mg/dL (7-18)
[2020-03-09 05:29] LABS: GLUCOSE 49 mg/dL (74-106)
--- NOTE | 2020-03-09 07:26 | NUR ---
ICU NOTES PTS ENDORSE TO FRANCOIS GONZALEZ FOR CONTINUITY OF CARE. FOR CT HEAD AT 8AM WITHOUT CONTRAST
[2020-03-09] MEDS: DOCUSATE SODIUM 100 MG CAPSULE PO SCH ×2 (08:40→17:01)
[2020-03-09] MEDS: PANTOPRAZOLE 40 MG TABLET.DR PO SCH (08:40)
[2020-03-09] MEDS: INSULIN REGULAR, HUMAN 100 UNIT/ML 3 ML VIAL SQ PRN ×2 (08:42→22:24)
--- NOTE | 2020-03-09 15:45 | NUR ---
Patient transferred from ICU to room 205, received report by Narcisa/RN. Patient in stable condition, noted skin abrasion on right over eye brow and left knee. Will continue to monitor.
--- NOTE | 2020-03-09 15:45 | NUR ---
[facility] overflow status *ICU ROOM 257* -> tele status room [address] this am shows no changes from last night. Orders received to downgrade to tele. Report given to Noelle PARRISH. Transported per ACLS protocol. Patient remains awake, alert and oriented x4, no slurred speech, denies headache, chest pain and dizziness. pupils bilaterally PERRLA, athletic field custodian strength and smile equal. on room air, SPO2 >96%, no SOB, respirations even and unlabored. Receiving RN at bedside aware patient needs to be attached to tele, rhythm= sinus,w/ junctional & PVC HR 74. continent, uses urinal, see I&O for output. eats independently, facial/L knee wounds, wound consult placed. R foot edema 1+. L AC intact, patent, no s/s infiltration or erythema. D5NS @70mL/hr. social media job titles consult pending - patient reports being homeless. belongings sent with patient, checklist signed. Medications x2 given to RN.
--- NOTE | 2020-03-09 17:58 | NUR ---
RN Closing note Patient in bed resting, denies pain or discomfort, skin is warm to touch, keep clean/dry, intact IV site, running D5 NS at 70ml/hr. Respiratory even and unlabored on room air and O2sat 97%, no respiratory distress observed. Kept locked bed with lowest position and elevated HOB for ensure airway and aspiration precaution. Call light within reach, all needs met, will endorse power wood sawyer.
--- NOTE | 2020-03-09 19:50 | NUR ---
CASH APPLICATIONS ASSOCIATE NOTES RECEIVED PATIENT AWAKE ALERT ORIENTED X4. NO SIGNS OF ACUTE CARDIAC OR RESPIRATORY DISTRESS NOTED. DENIES ANY PAIN OR DISCOMFORT AT THIS TIME. TELE MONITOR READS SINUS WITH JUNCTIONAL PVC. SAFETY MEASURES IN PLACE. ASPIRATION PRECAUTION EMPHASIZED. BED IN LOW LOCKED POSITION, CALL LIGHT WITH IN EASY REACH. IV ACCESS INTACT AND PATENT ON HIS LEFT AC G#20 D5NS AT 70 ML/HR INFUSING WELL. ALL NEEDS ANTICIPATED, USES URINAL. WILL CONTINUE TO MONITOR ACCORDINGLY.
[2020-03-09 20:17] LABS: CREATININE, URINE 21.9 MG/DL (30.0-125.0); URINE TOTAL PROTEIN 3.7 mg/dL (0-11.9)
[2020-03-09 20:21] LABS: APPEARANCE,URINE CLEAR (CLEAR); BILIRUBIN,URINE NEGATIVE (NEGATIVE); BLOOD, URINE NEGATIVE Ery/uL (NEGATIVE); COLOR,URINE YELLOW (YELLOW); KETONES,URINE NEGATIVE (NEGATIVE); LEUKOCYTE ESTERASE ,URINE NEGATIVE (NEGATIVE); NITRITE, URINE NEGATIVE (NEGATIVE); PH,URINE 5.5 (5.0-8.0); PROTEIN,URINE NEGATIVE (NEGATIVE); UGLUCOSE 100 MG/DL mg/dL (NEGATIVE); UROBILINOGEN,URINE 0.2 EU/dL (0.2)
[2020-03-09 21:04] LABS: EOSINOPHIL,URINE None Seen
[2020-03-10] VITALS: BP 130/73
[2020-03-10 04:00] VITALS: BP 131/67
[2020-03-10] MEDS: INSULIN REGULAR, HUMAN 100 UNIT/ML 3 ML VIAL SQ PRN ×2 (06:25→22:23)
--- NOTE | 2020-03-10 06:35 | NUR ---
PUBLIC TRANSIT BUS DRIVER NOTES ALL NEEDS ATTENDED AND MET, ABLE TO REST AND SLEPT AT INTERVALS. PATIENT AWAKE ALERT ORIENTED X4. NO SIGNS OF ACUTE CARDIAC OR RESPIRATORY DISTRESS NOTED. DENIES ANY PAIN OR DISCOMFORT AT THIS TIME. TELE MONITOR READS SINUS WITH JUNCTIONAL PVC. SAFETY MEASURES IN PLACE. ASPIRATION PRECAUTION EMPHASIZED. BED IN LOW LOCKED POSITION, CALL LIGHT WITH IN EASY REACH. IV ACCESS INTACT AND PATENT ON HIS LEFT AC G#20 D5NS AT 70 ML/HR INFUSING WELL. ALL NEEDS ANTICIPATED, USES URINAL. WILL ENDORSE TO AM NURSE FOR CONTINUITY OF CARE.
[2020-03-10 06:41] LABS: BASOPHILS % (AUTO) 0.5 % (0.0-2.0); EOSINOPHILS % (AUTO) 2.9 % (0.0-6.0); HEMATOCRIT 33 % (39-51); HEMOGLOBIN 10.8 g/dL (13.5-17.5); LYMPHOCYTES # (AUTO) 0.8 /CMM (0.8-4.8); LYMPHOCYTES % (AUTO) 18.1 % (20.0-44.0); MEAN CORPUSCULAR HGB CONC 33 g/dl (31.0-36.0); MEAN CORPUSCULAR VOLUME 90 fL (80-96); MONOCYTES # (AUTO) 0.4 /CMM (0.1-1.30); MONOCYTES % (AUTO) 9.7 % (2.0-12.0); NEUTROPHILS % (AUTO) 68.8 % (43.0-81.0); PLATELET COUNT (AUTO) 153 /CMM (150-450); RED BLOOD CELL COUNT(AUTO) 3.64 MIL/uL (4.5-6.0); WHITE BLOOD COUNT (AUTO) 4.4 K/uL (4.3-11.0)
[2020-03-10] MEDS: BLOOD SUGAR DIAGNOSTIC 1 EACH STRIP IN SCH ×4 (07:00→22:23)
[2020-03-10] MEDS: PANTOPRAZOLE 40 MG TABLET.DR PO SCH (07:00)
--- NOTE | 2020-03-10 07:26 | NUR ---
SLUNK SKIN CURER OPENING NOTES RECEIVED PATIENT IN BED, AWAKE, A/O X4. PATIENT ON ROOM AIR; BREATHING EVEN AND UNLABORED; NO SOB NOTICED AT THIS TIME. NO COMPLAINS OF PAIN AT THIS MOMENT. LAC G #20 PRESENT AND INTACT INFUSING D5 NS @ 70 ML/HR. SAFETY PRECAUTIONS IN PLACE; BED IN LOW POSITION AND LOCKED, RAILS UP X2, CALL LIGHT WITHIN REACH. WILL CONTINUE TO MONITOR PATIENT.
[2020-03-10 07:51] LABS: CALCIUM, SERUM 8.9 mg/dL (8.5-10.1); CARBON DIOXIDE 24 mmol/L (21-32); CHLORIDE 108 mmol/L (98-107); CREATININE 1.5 mg/dL (0.6-1.3); GLUCOSE 245 mg/dL (74-106); POTASSIUM 4.4 mmol/L (3.5-5.1); SODIUM SERUM 141 mmol/L (136-145); UREA NITROGEN, BLOOD 23 mg/dL (7-18)
[2020-03-10 08:00] VITALS: BP 124/69
[2020-03-10] MEDS: DOCUSATE SODIUM 100 MG CAPSULE PO SCH ×2 (08:08→17:09)
--- NOTE | 2020-03-10 09:44 | NUR ---
WOUND CARE CONSULT: REVIEWED CHART, NURSING DOCUMENTATION AND PHOTOS WHICH INDICATE DRY ABRASIONS/SCABS TO FACE AND LEFT KNEE, PRESENT ON ADMISSION. SPOKE WITH NURSING STAFF. CURRENT BLAKE SCORE IS 20. PER NURSING STAFF, PT IS AMBULATORY AND CONTINENT. WILL SEE PRN.
[2020-03-10] MEDS ORDERED: GLIP10TA11 PO (10:14)
[2020-03-10] MEDS ORDERED: JANUMET PO (10:14)
[2020-03-10] MEDS ORDERED: METO-357 PO (10:15)
[2020-03-10 12:00] VITALS: BP 132/69
[2020-03-10 16:00] VITALS: BP 130/72
--- NOTE | 2020-03-10 17:16 | NUR ---
HAND CANDY MOLDER NOTES 1700 ACCU-CHECK WITH BS 162. PATIENT REFUSES COVERAGE.
--- NOTE | 2020-03-10 19:17 | NUR ---
RADIOGRAPHER CARDIAC CATHETERIZATION CLOSING NOTES PATIENT IN BED, AWAKE, A/O X4. PATIENT ON ROOM AIR; BREATHING EVEN AND UNLABORED; NO SOB NOTICED DURING SHIFT. PATIENT AMBULATORY AND WITH NO COMPLAINS OF PAIN. LAC G #20 PRESENT AND INTACT INFUSING D5 NS @ 70 ML/HR. ALL NEEDS ATTENDED TO THROUGHOUT THE DAY. SAFETY PRECAUTIONS IN PLACE; BED IN LOW POSITION AND LOCKED, RAILS UP X2, CALL LIGHT WITHIN REACH. WILL ENDORSE TO HOTBED LEVER OPERATOR NURSE. .
--- NOTE | 2020-03-10 19:20 | NUR ---
RN OPENING NOTES: Pt transferred to [facility] rm 114-1 via ACLS protocols. Pt A&Ox4. On tele monitor showing SR. On room air, O2 WNL. No SOB or resp distress noted. Breathing even and unlabored. Pt ambulatory, has urinal at bedside as well. LAC #20 patent and flushed w/ D5NS infusing at 70ml/hr. Dressing c/d/i. Safety measures in place. Will continue to monitor.
[2020-03-10 20:00] VITALS: BP_SYST 112; BP_SYST 119; BP_DIAS 61; BP_DIAS 63
--- NOTE | 2020-03-10 22:23 | NUR ---
RN NOTE: Pt's accucheck: 118. Pt refusing insulin. Explained risks and benefits x3 and pt stated "my blood sugar in the morning was normal, and this isn't too high. I don't want it." Will continue to monitor.
--- NOTE | 2020-03-10 22:28 | NUR ---
RN NOTE: Pt is supposed to be on tele monitor. Pt not showing on monitor. Changed box and leads and still not showing. Pt is very hair. Explained to pt he needs to be shaved and pt is refusing. Stated "Someone already shaved me!" Explained importance of tele monitor and continuing refusal. housekeeper/laundry assistant MD. Dr. Ramirez made aware. Addendum: 03/10/20 at 2232 by TATUM DEWEY RN Dr. Ramirez gave orders to downgrade to med surg. Noted.
[2020-03-11] MEDS: IV D5/ 0.9% NACL 1,000 ML IV PRN (00:37)
[2020-03-11 04:00] VITALS: BP 121/78
[2020-03-11 06:32] LABS: BASOPHILS % (AUTO) 0.7 % (0.0-2.0); EOSINOPHILS % (AUTO) 2.9 % (0.0-6.0); HEMATOCRIT 33 % (39-51); LYMPHOCYTES # (AUTO) 0.8 /CMM (0.8-4.8); LYMPHOCYTES % (AUTO) 16.7 % (20.0-44.0); MEAN CORPUSCULAR HGB CONC 33 g/dl (31.0-36.0); MEAN CORPUSCULAR VOLUME 88 fL (80-96); MONOCYTES # (AUTO) 0.5 /CMM (0.1-1.30); MONOCYTES % (AUTO) 9.4 % (2.0-12.0); NEUTROPHILS # (AUTO) 3.4 /CMM (1.8-8.9); NEUTROPHILS % (AUTO) 70.3 % (43.0-81.0); PLATELET COUNT (AUTO) 164 /CMM (150-450); RED BLOOD CELL COUNT(AUTO) 3.77 MIL/uL (4.5-6.0); WHITE BLOOD COUNT (AUTO) 4.9 K/uL (4.3-11.0)
--- NOTE | 2020-03-11 06:51 | NUR ---
RN CLOSING NOTES: Pt remains stable throughout shift. Remains on room air, breathing even and unlabored. No SOB or resp distress noted throughout shift. LAC #20 patent and infusing D5NS at 75ml/hr. Dressing c/d/i. Refused bed bath and linen change during shift. Safety measures in place. Will endorse to oncoming nurse for JOHN.
[2020-03-11] MEDS: BLOOD SUGAR DIAGNOSTIC 1 EACH STRIP IN SCH ×2 (07:30→12:02)
[2020-03-11] MEDS: PANTOPRAZOLE 40 MG TABLET.DR PO SCH (08:05)
[2020-03-11 08:54] LABS: CARBON DIOXIDE 23 mmol/L (21-32); CHLORIDE 107 mmol/L (98-107); CREATININE 1.5 mg/dL (0.6-1.3); GLUCOSE 131 mg/dL (74-106); POTASSIUM 4.4 mmol/L (3.5-5.1); SODIUM SERUM 141 mmol/L (136-145); UREA NITROGEN, BLOOD 20 mg/dL (7-18)
[2020-03-11] MEDS: DOCUSATE SODIUM 100 MG CAPSULE PO SCH (10:10)
[2020-03-11 12:03] VITALS: BP 144/61
[2020-03-11] MEDS: INSULIN REGULAR, HUMAN 100 UNIT/ML 3 ML VIAL SQ PRN (12:12)
--- NOTE | 2020-03-11 12:37 | NUR ---
Pickle Solution Maker consult requested by Giovanin Jones YARN DUMPER for homelessness. Patient is alert and oriented x4. Patient confirmed date of and social security number on facesheet. Patient reports that he is not homeless. Patient reports he lives in an apartment and patient informed this SW that patient can arrange for things himself. Patient reports that he will use a pharmacy that delivers to provide medications and will follow-up with [facility] MD's if necessary. Patient denies family or friends for this SW to notify patient is in the hospital. SW contacted case management. Per case management team, patient has been accepted to a detention facility. SW to remain available for all needs regarding this patient.
--- NOTE | 2020-03-11 15:30 | NUR ---
NURSES NOTES Call to [facility]. Gave report to FRANCOIS Askew for patient transfer to facility. Answered questions asked and provided information re patient.
--- NOTE | 2020-03-11 17:45 | NUR ---
RN NOTES Patient picked up by ambulance company for discharge to long-term facility. Patient in stable condition, belongings w/ patient. Questions answered. Report given to transport team
== END 2020-03-11 18:12 | DRG 85 ==
LOC: ER 23:04 → ICU 03-09 01:58 → TELE2 03-09 15:32 → TELE1 03-10 19:45 → MEDSG1 03-10 23:11
PROVIDERS: ADMIT Internal Medicine
DX: S06.5X0A Traumatic subdural hemorrhage without loss of consciousness, initial encounter (principal); N17.0 Acute kidney failure with tubular necrosis; E44.0 Moderate protein-calorie malnutrition; I50.32 Chronic diastolic (congestive) heart failure; D68.59 Other primary thrombophilia; Q61.3 Polycystic kidney, unspecified; Y92.89 Other specified places as the place of occurrence of the external cause; I11.0 Hypertensive heart disease with heart failure; S02.401A Maxillary fracture, unspecified side, initial encounter for closed fracture; Z86.73 Personal history of transient ischemic attack (TIA), and cerebral infarction without residual deficits; Y04.0XXA Assault by unarmed brawl or fight, initial encounter; S80.212A Abrasion, left knee, initial encounter; S80.02XA Contusion of left knee, initial encounter; E11.649 Type 2 diabetes mellitus with hypoglycemia without coma; D64.9 Anemia, unspecified; E78.00 Pure hypercholesterolemia, unspecified; E78.5 Hyperlipidemia, unspecified; I25.10 Atherosclerotic heart disease of native coronary artery without angina pectoris; K21.9 Gastro-esophageal reflux disease without esophagitis; N40.0 Benign prostatic hyperplasia without lower urinary tract symptoms; J44.9 Chronic obstructive pulmonary disease, unspecified; Z79.4 Long term (current) use of insulin; Z79.82 Long term (current) use of aspirin; I25.2 Old myocardial infarction; S00.81XA Abrasion of other part of head, initial encounter; Z59.0 Homelessness; Z79.899 Other long term (current) drug therapy; Z90.49 Acquired absence of other specified parts of digestive tract; Z90.5 Acquired absence of kidney; Z85.528 Personal history of other malignant neoplasm of kidney; Z95.5 Presence of coronary angioplasty implant and graft; F03.90 Unspecified dementia, unspecified severity, without behavioral disturbance, psychotic disturbance, mood disturbance, and anxiety; E86.0 Dehydration; Z87.891 Personal history of nicotine dependence; M19.90 Unspecified osteoarthritis, unspecified site; J32.9 Chronic sinusitis, unspecified; I70.0 Atherosclerosis of aorta; Z74.09 Other reduced mobility; F41.0 Panic disorder [episodic paroxysmal anxiety]; M47.812 Spondylosis without myelopathy or radiculopathy, cervical region
CPT/HCPCS: 36415; 70450-TC; 70486-TC; 71045-TC; 72125-TC; 73564-TC; 80048-TC; 80053-TC; 80061-TC; 81000-TC; 82570-TC; 82962-TC; 83735-TC; 84100-TC; 84155-TC; 84300-TC; 84484-TC; 85025-TC; 85610-TC; 87081-TC; C9803; G0378; J1815; J3490; J7042; U0003

== ENCOUNTER 2020-04-25 09:53 | Emergency (ER) | payer MEDICARE, OTHER ==
[~2020-04-25] VITALS: Ht 167.6 cm; Wt 76.2 kg
[~2020-04-25 09:53] MED LIST changes: +AMLO-212 PO; -AMLO5TAB9 PO; +GLIP10TA11 PO; -GLIP10TA21 PO; +JANUMET PO; +METO-357 PO; -METO25TA4 PO
[2020-04-25] MEDS ORDERED: SITA1TAB2 PO (10:00)
[2020-04-25] MEDS ORDERED: FURO40TA5 PO (10:00)
[2020-04-25 10:12] VITALS: BP 114/60
[2020-04-25] MEDS ORDERED: BACI/NEOM/POLY B OINT PKT 1 UDPKT PACKET ONE (10:18)
[2020-04-25] MEDS ORDERED: TDAP [DIPH/PERTUSSIS/TET] 0.5 ML VIAL IM ONE (10:18)
[2020-04-25] MEDS: TDAP [DIPH/PERTUSSIS/TET] 0.5 ML VIAL IM ONE (10:25)
[2020-04-25] MEDS: BACI/NEOM/POLY B OINT PKT 1 UDPKT PACKET TP ONE (10:25)
== END 2020-04-25 10:56 | disposition home or self-care (01) ==
LOC: ER 09:58
DX: S61.411A Laceration without foreign body of right hand, initial encounter (principal); I10 Essential (primary) hypertension; E11.9 Type 2 diabetes mellitus without complications; I25.2 Old myocardial infarction; K21.9 Gastro-esophageal reflux disease without esophagitis; E78.00 Pure hypercholesterolemia, unspecified; Z90.5 Acquired absence of kidney; Z60.2 Problems related to living alone; Z79.4 Long term (current) use of insulin; Z79.82 Long term (current) use of aspirin; Z79.899 Other long term (current) drug therapy; W26.0XXA Contact with knife, initial encounter; Y93.89 Activity, other specified; Y92.89 Other specified places as the place of occurrence of the external cause; Y99.8 Other external cause status
CPT/HCPCS: 90715

== ENCOUNTER 2020-04-28 08:09 | Emergency (ER) | payer MEDICARE, OTHER ==
[~2020-04-28] VITALS: Ht 170.2 cm; Wt 78.9 kg
[~2020-04-28 08:09] MED LIST changes: +FURO40TA5 PO; -HYDR25TA4 PO; -JANUMET PO; +SITA1TAB2 PO
[2020-04-28 08:25] VITALS: BP 105/60
--- NOTE | 2020-04-28 08:36 | NUR ---
Patient discharged to home in stable condition. Written and verbal after care instructions given. Patient verbalizes understanding of instruction.
== END 2020-04-28 08:35 | disposition home or self-care (01) ==
LOC: ER 08:20
DX: S61.411D Laceration without foreign body of right hand, subsequent encounter (principal); F17.210 Nicotine dependence, cigarettes, uncomplicated; I10 Essential (primary) hypertension; I25.2 Old myocardial infarction; K21.9 Gastro-esophageal reflux disease without esophagitis; E11.9 Type 2 diabetes mellitus without complications; E78.00 Pure hypercholesterolemia, unspecified; Z59.0 Homelessness; Z90.5 Acquired absence of kidney; Z60.2 Problems related to living alone; Z79.4 Long term (current) use of insulin; Z79.82 Long term (current) use of aspirin; Z79.899 Other long term (current) drug therapy; X58.XXXD Exposure to other specified factors, subsequent encounter

== ENCOUNTER 2020-06-25 12:37 | Emergency (ER) | payer MEDICARE, MEDICAID ==
[~2020-06-25] VITALS: Ht 162.6 cm; Wt 77.1 kg
[2020-06-25 13:02] VITALS: BP 116/50
--- NOTE | 2020-06-25 13:44 | NUR ---
Patient discharged to home in stable condition. Written and verbal after care instructions given. Patient verbalizes understanding of instruction.(pt. name) ambulatory with a steady gait. Homeless waiver signed by the patient. Meal provided. Refused resources, pt is already awaiting for home placement.
== END 2020-06-25 13:47 | disposition home or self-care (01) ==
LOC: ER 12:40
DX: L03.012 Cellulitis of left finger (principal); I10 Essential (primary) hypertension; I25.2 Old myocardial infarction; K21.9 Gastro-esophageal reflux disease without esophagitis; E11.9 Type 2 diabetes mellitus without complications; E78.00 Pure hypercholesterolemia, unspecified; F17.200 Nicotine dependence, unspecified, uncomplicated; Z90.5 Acquired absence of kidney; Z60.2 Problems related to living alone; Z79.899 Other long term (current) drug therapy; Z79.4 Long term (current) use of insulin; Z79.82 Long term (current) use of aspirin